=== PATIENT | female | born 1975 | race Caucasian/White ===

== ENCOUNTER 2022-05-20 07:24 | Day surgery (SDC) | payer OTHER ==
[2022-05-17 16:22] LABS: Absolute Lymphocytes (CBC) 2.5 K/uL (0.7-4.9); Hematocrit 39.2 % (36.0-45.0); Lymphocytes % 26.7 % (15.3-44.8); MCV 90.2 fL (80-100); MPV 6.9 fL (7.6-11.3); RBC Red Blood Cell Count 4.35 M/uL (3.86-4.86)
--- NOTE | 2022-05-17 16:52 | RAD REPORT ---
EXAM DESCRIPTION: Ricky Morel (2 Views)05/17/2022 4:05 pm CLINICAL HISTORY: Preop for scalp surgery COMPARISON: None FINDINGS: The lungs appear clear of acute infiltrate. The heart is normal size IMPRESSION: No acute abnormalities displayed
[2022-05-20] MEDS ORDERED: CEFAZOLIN SODIUM 1 GM/VIAL ONE (07:47)
[2022-05-20] MEDS ORDERED: Ringers Lactate 1,000 ML IV ONE (07:47)
[2022-05-20] MEDS ORDERED: FENTANYL CITR 100 MCG/2 ML ONE (08:17)
[2022-05-20] MEDS ORDERED: MIDAZOLAM HCL 2 MG/2 ML INJ ONE (08:17)
[2022-05-20] MEDS ORDERED: KETOROLAC 30 MG/ML INJ ONE (08:17)
[2022-05-20] MEDS ORDERED: propofoL 200 MG/20 ML VIAL IV ONE (08:17)
[2022-05-20] MEDS ORDERED: ONDANSETRON 4 MG/2 ML VIAL ONE (08:18)
[2022-05-20] MEDS ORDERED: LIDOCAINE 2% MPF 5 ML VIAL ONE (08:18)
[2022-05-20 08:30] LABS: Urine Specific Gravity/Preg 1.025 (1.005-1.030)
[2022-05-20] MEDS ORDERED: LIDOCAINE 1% W/EPI 1:100,000 10 ML VIAL ONE (08:51)
[2022-05-20] MEDS ORDERED: EPHEDRINE SULF 50 MG/ML VIAL ONE (09:01)
[2022-05-20] MEDS: MEPERIDINE HCL 25 MG/ML SYR ONE ×2 (09:48→09:59)
--- NOTE | 2022-05-20 09:56 | P.BOP ---
Preoperative diagnosis: scalp tender masses Postoperative diagnosis: same Primary procedure: Excusional biopsy subQ scalp masses: 1. Mid anterior 2x2cm Secondary procedure: 2. Mid Occipital 2x2cm, 3. Mid Parietal 3x2cm Estimated blood loss: <10cc Specimen: masses x 3 Findings: as above Anesthesia: General Complications: None Transferred to: Recovery Room Condition: Good
[2022-05-20] MEDS ORDERED: HYDROCODONE/APAP 5/325 MG TAB PO PRN (10:02)
[2022-05-20 11:36] VITALS: BP 106/55; TEMP 96.7; O2SAT 95
--- NOTE | 2022-05-20 18:48 | EKG ---
Test Date: 2022-05-17 Test Time: 15:44:43 [employer] Laborer: RADHA MEASUREMENT RESULTS: Intervals: Rate: 70 IN: 156 QRSD: 92 QT: 386 QTc: 416 [place]: P: 67 IN: 156 QRS: 71 T: 99 INTERPRETIVE STATEMENTS: Normal sinus rhythm Nonspecific ST abnormality Abnormal ECG No previous ECG available for comparison Electronically Signed On 05-20-22 18:42:49 ASSET ANALYST by Faheem Merrill
== END 2022-05-20 11:08 | disposition home or self-care (01) ==
LOC: OR 07:24
PROVIDERS: ATTEND Surgery
PROC: 0JB00ZZ Excision of Scalp Subcutaneous Tissue and Fascia, Open Approach (ICD-10-PCS; principal; 2022-05-20 08:30)
DX: L72.11 Pilar cyst (principal); F41.9 Anxiety disorder, unspecified; F90.9 Attention-deficit hyperactivity disorder, unspecified type; F17.210 Nicotine dependence, cigarettes, uncomplicated
CPT/HCPCS: 93005; 85025; 80048; 36415; 81025; 88305; 71046; 11422 ×2; 11423; J2704; J2001; J2250; J3010; J2175; J7120; J2405; J0690; 88304